=== PATIENT | female | born 1980 | race Caucasian/White ===

== ENCOUNTER 2022-06-21 09:21 | Emergency (ER) | payer OTHER ==
[2022-06-21 09:34] VITALS: BP 123/83; PULSE 79; RESP 18; TEMP 97.8; BMI 41.9
[2022-06-21] MEDS ORDERED: METHOCARBAMOL 500 MG TABLET PO ONE (10:20)
[2022-06-21] MEDS ORDERED: METHOCARBAMOL 500 MG TABLET ONE (10:50)
== END 2022-06-21 11:59 | disposition home or self-care (01) ==
LOC: JER 09:21
DX: M54.6 Pain in thoracic spine (principal); R51.9 Headache, unspecified; V49.40XA Driver injured in collision with unspecified motor vehicles in traffic accident, initial encounter
CPT/HCPCS: 70450-TC; 72125-TC; 99284-25